=== PATIENT | female | born 1990 | race Two or more races ===

== ENCOUNTER 2024-05-14 14:51 | Emergency (ER) | payer OTHER ==
[~2024-05-14] VITALS: Ht 157.5 cm; Wt 47.6 kg
[2024-05-14] MEDS ORDERED: LEVSIN0.125 MG (15:41)
[2024-05-14] MEDS ORDERED: DEXAMETHASONE SODIUM PHOSPHATE 4 MG/ML VIAL IM STA (19:21)
[2024-05-14 20:29] LABS: URINE APPEARANCE Clear; URINE BILIRRUBIN Negative (NEGATIVE); URINE BLOOD Moderate; URINE COLOR Yellow; URINE GLUCOSE Negative (NEGATIVE); URINE KETONE Trace (NEGATIVE); URINE LEUKOCYTE Negative; URINE NITRATE Negative; URINE PROTEIN Negative (NEGATIVE); URINE UROBILINOGEN 0.2 E.U./dl
[2024-05-14 20:30] LABS: URINE BACTERIA 80.6 uL (0.0-1933); URINE EPITHELIAL CELLS 19.9 uL (0.0-38.8); URINE RBC 10.6 uL (0.0-20.8); URINE WBC 7.8 uL (0.0-23.2)
[2024-05-14] MEDS ORDERED: TYLENOL ARTHRI650 MG PO (23:37)
== END 2024-05-15 00:34 | disposition home or self-care (01) ==
LOC: ER 14:53
PROVIDERS: General Practice
DX: R10.9 Unspecified abdominal pain (principal); Z91.018 Allergy to other foods; Z91.011 Allergy to milk products; Z88.6 Allergy status to analgesic agent; Z91.013 Allergy to seafood; D25.9 Leiomyoma of uterus, unspecified